=== PATIENT | female | born 1945 | race Caucasian/White ===

== ENCOUNTER 2017-12-28 16:13 | Emergency (ER) | payer MEDICARE ==
[2017-12-28] MEDS ORDERED: Bacitracin Oint 1 GM U/D Packet TOP ONE (17:16)
[2017-12-28] MEDS ORDERED: Ketorolac 30 MG/ML SDV IM ONE (17:21)
--- NOTE | 2017-12-28 17:22 | EDM.PDOC ---
ED HPI GENERAL MEDICAL PROBLEM - General Chief Complaint: Laceration Stated Complaint: RIGHT SECOND FINGER LACERATION Time Seen by Provider: 12/28/17 16:54 Source of Information: Reports: Patient, RN Notes Reviewed History Limitations: Reports: No Limitations - History of Present Illness INITIAL COMMENTS - FREE TEXT/NARRATIVE: 72-year-old female presents to the emergency department today with complaint of crush injury digit #3 right hand, she has no functional complaints bleeding is controlled Right Hand Pain Score (Numeric/FACES): 4 - Related Data Allergies Allergy/AdvReac Type Severity Reaction Status Date / Time Sulfa (Sulfonamide Allergy Itching Verified 12/28/17 16:49 Antibiotics) Past Medical History [employer] History: Reports: Musculoskeletal History: Reports: Osteoporosis Social & Family History - Tobacco Use Smoking Status *Q: Never Smoker - Caffeine Use Caffeine Use: Reports: Coffee - Recreational Drug Use Recreational Drug Use: Yes Recreational Drug Type: Reports: Marijuana/Hashish ED ROS GENERAL - Review of Systems Review Of Systems: See Below Constitutional: Reports: No Symptoms Musculoskeletal: Reports: Hand Pain Skin: Reports: Wound ED EXAM, SKIN/RASH Exam: See Below Text/Narrative:: Examination the right hand she does have a superficial laceration between over the DIP joint she has full range of motion of digit #2 radial pulses +2 Ramirez' s test is negative Exam Limited By: No Limitations General Appearance: Alert, WD/WN, No Apparent Distress ED SKIN PROCEDURES - Laceration/Wound Repair Right Finger Lac/Wound length In cm: 2 Appearance: Subcutaneous, Clean Distal NVT: Neuro & Vascular Intact, No Tendon Injury Anesthetic Type: Digital Local Anesthesia - Lidocaine (Xylocaine): 1% Plain Local Anesthetic Volume: 2cc Skin Prep: Chlorhexidine (Hibiciens) Saline Irrigation (cc's): 5 Exploration/Debridement/Repair: Wound Explored, In a Bloodless Field, Explored to Base Closed with: Sutures Suture Size: 4-0 # of Sutures: 4 Suture Type: Nylon, Interrupted Drain Placement: No Sterile Dressing Applied: Nurse Tetanus Status Addressed: Yes (2013) Complications: No Course - Vital Signs Last Recorded V/S: Last Vital Signs Temp 98.2 F 12/28/17 16:51 Pulse 76 12/28/17 16:51 Resp 16 12/28/17 16:51 BP 141/71 H 12/28/17 16:51 Pulse Ox 99 12/28/17 16:51 - Orders/Labs/Meds Orders: Active Orders 24 hr Category Date Time Status Hand Comp Min 3V Rt [CR] Stat Exams 12/28/17 17:21 Taken Meds: Medications Discontinued Medications Generic Name Dose Route Start Last Admin Trade Name Jacinta PRN Reason Stop Dose Admin Bacitracin 1 dose 12/28/17 17:16 12/28/17 17:26 Bacitracin Oint 1 Gm TOP 12/28/17 17:17 1 dose ONETIME ONE Administration Ketorolac Tromethamine 30 mg 12/28/17 17:21 12/28/17 17:27 Toradol IM 12/28/17 17:22 30 mg ONETIME ONE Administration Lidocaine HCl 5 ml 12/28/17 17:16 12/28/17 17:27 Xylocaine-Mpf 1% INJECT 12/28/17 17:17 5 ml ONETIME ONE Administration Departure - Departure Time of Disposition: 18:05 Disposition: Home, Self-Care 01 Condition: Good Clinical Impression: Finger laceration Qualifiers: Encounter type: initial encounter Finger: middle finger Damage to nail status: without damage Foreign body presence: without foreign body Laterality: right Qualified Code(s): S61.212A - Laceration without foreign body of right middle finger without damage to nail, initial encounter - Discharge Information Referrals: PCP,None [Primary Care Provider] - Forms: ED Department Discharge Additional Instructions: Suture removal in 10 days, follow wound care instruction sheet, return to the emergency department or primary care for suture removal - My Orders Last 24 Hours: My Active Orders 12/28/17 17:21 Hand Comp Min 3V Rt [CR] Stat - Assessment/Plan Last 24 Hours: My Active Orders 12/28/17 17:21 Hand Comp Min 3V Rt [CR] Stat Plan: Assessment Acuity = acute Site and laterality = 2 cm laceration digit #3 right hand Etiology = secondary trauma Manifestations = none Location of injury = Home Lab values = finger x-ray I did review films myself I cannot appreciate any acute process, the official read from radiology is pending Plan Suture removal in 10 days, follow wound care instruction sheet follow-up with emergency room or primary care for removal This note was dictated using [employer] voice recognition software please call with any questions on syntax or grammar.
--- NOTE | 2017-12-30 08:52 | CR ---
Hand Comp Min 3V Rt CLINICAL HISTORY: Correction injury FINDINGS: There is no acute fracture or dislocation of the hand. There are severe degenerative change s throughout the interphalangeal joints most notable at the second and fifth DLP is. There is diffuse narrowing at the MCP joints . There are severe deformity at the first carpometacarpal joint. The the trapezium is essentially absent. This may been surgically removed. 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 Clinical correlation necessary
== END 2017-12-28 18:10 | disposition home or self-care (01) ==
LOC: JP.ED 16:13
DX: S61.212A Laceration without foreign body of right middle finger without damage to nail, initial encounter (principal); X58.XXXA Exposure to other specified factors, initial encounter; Z88.2 Allergy status to sulfonamides
CPT/HCPCS: 12001; 73130; 96372; 99284; J1885